=== PATIENT | male | born 1985 | race Caucasian/White ===

== ENCOUNTER 2018-02-25 07:53 | Day surgery (SDC) | payer OTHER ==
[~2018-02-25] VITALS: Ht 177.8 cm; Wt 140.6 kg
--- NOTE | ~2018-02-25 | OP ---
PATIENT NAME: JENARO RICO MEDICAL RECORD: [id number] LOCATION:D.OPS ADMISSION DATE: SURGEON: TREVOR NASH MD DATE OF OPERATION: 02/25/2018 PREOPERATIVE DIAGNOSES: 1. Gallstones. 2. Umbilical hernia. 3. Hypertension. 4. Gout. 5. Morbid obesity with a BMI of 44.5. POSTOPERATIVE DIAGNOSES: 1. Gallstones. 2. Umbilical hernia. 3. Hypertension. 4. Gout. 5. Morbid obesity with a BMI of 44.5. PROCEDURE: 1. Laparoscopic cholecystectomy. 2. Umbilical hernia repair without mesh. SURGEON: Trevor Nash MD SHED BOSS: Cony Reece APRN REPORT OF PROCEDURE: The patient's abdomen was prepped and draped in sterile fashion. A semicircular incision was made on the inferior aspect of the umbilicus. Electrocautery was used to dissect through the subcutaneous tissues and the tissue underneath the umbilical stalk. This incorporated the hernia sac. The hernia defect was a little over a centimeter in greatest diameter. We cleared up the fascial edges and placed 0 Vicryls on the fascia bilaterally. I bluntly entered the peritoneal cavity and placed a 12-mm Keily port. Under direct visualization, a 5-mm trocar was placed in the epigastrium and 2 more 5-mm trocars were placed in the right subcostal region. The gallbladder was elevated and there was noted to be some inflammatory adhesions present. These were teased down carefully with blunt dissection. The cystic artery and cystic duct were dissected free and these were clipped proximally and distally and ligated in standard fashion. The gallbladder was then taken off the liver bed using electrocautery and placed into an Endo Catch bag. The right upper quadrant was irrigated out and care was taken to assure there was no sign of any bleeding or bile leakage. Any bleeding from the liver bed was treated with electrocautery. At this point, the ports and insufflation were then removed and the gallbladder was taken out through the umbilicus. The umbilical fascia had to be opened up superiorly in order to facilitate removal of the gallbladder due to the size of the stone. The fascia was then closed in the midline using multiple interrupted 0 Prolenes. The wound was then irrigated out with normal saline. The umbilicus was tacked down to the fascia with a single interrupted 3-0 Vicryl. The subcutaneous tissues were then reapproximated with interrupted 3-0 Vicryl. A total of 10 mL of 0.25% Marcaine with epinephrine were infused into the surrounding tissues and the skin incisions were closed with subcutaneous 5-0 Monocryl. The wounds were then dressed appropriately. COMPLICATIONS: None. OPERATIVE REPORT [id number] JENARO RICO CONDITION: Stable. ANESTHESIA: General endotracheal and local. BLOOD LOSS: Minimal. TRANSINT:[id number] Voice Confirmation ID: [id number] DOCUMENT ID: [id number] TREVOR NASH MD at 1219 CC: [id number] DICTATION DATE: 02/25/18 1133 LLAMA FARMER: 02/25/18 1152 [facility] [address] [place] [address]
[2018-02-25 08:18] LABS: BASOPHILS 0.4 % (0-2); EOSINOPHILS 2.1 % (0-7); HEMATOCRIT 42.9 % (42.0-54.0); HEMOGLOBIN 15.2 g/dL (13.5-17.5); IMMATURE GRANULOCYTES 0.4 % (0-5); LYMPHOCYTES 28.4 % (15-50); MCH 29.8 pg (26.0-34.0); MCHC 35.4 g/dL (31.0-37.0); MCV 84.1 fL (80.0-100.0); MEAN PLATELET VOLUME 10.1 fL (7.4-10.4); MONOCYTES 9.9 % (2-11); NEUTROPHILS 58.8 % (40-80); PLATELET COUNT 275 10x3/uL (130-400); WBC 6.7 10x3/uL (4.8-10.8)
[2018-02-25 08:30] LABS: CALC OSMOLALITY 280 mosm/kg (275-300); CALCIUM 9.2 mg/dL (8.5-10.1); CARBON DIOXIDE 28.3 mmol/L (21.0-32.0); CHLORIDE - SERUM 103 mmol/L (98-107); CREATININE - SERUM 1.1 mg/dL (0.6-1.3); GLUCOSE 108 mg/dL (74-106); POTASSIUM - SERUM 3.8 mmol/L (3.5-5.1); SODIUM 140 mmol/L (136-145); UREA NITROGEN 15 mg/dL (7-18); eGFR NON AFRICAN AMERICAN 82 mL/min (90-120)
[2018-02-25] MEDS ORDERED: OMEPRAZOLE40 MG PO (09:03)
[2018-02-25] MEDS ORDERED: METOPROLOL TART25 MG PO (09:04)
[2018-02-25] MEDS ORDERED: LISINOPRIL5 MG PO (09:04)
[2018-02-25 09:12] VITALS: BP 119/78; Ht 177.8 cm; Wt 140.6 kg
[2018-02-25] MEDS ORDERED: NORCO 10-325 TA1 TAB PO (11:28)
== END 2018-02-25 15:20 | disposition home or self-care (01) ==
LOC: D.OPS 07:53
PROVIDERS: Anesthesiology
DX: K80.10 Calculus of gallbladder with chronic cholecystitis without obstruction (principal); K81.1 Chronic cholecystitis; K42.9 Umbilical hernia without obstruction or gangrene; I10 Essential (primary) hypertension; M10.9 Gout, unspecified; E66.01 Morbid (severe) obesity due to excess calories; Z68.41 Body mass index [BMI] 40.0-44.9, adult

== ENCOUNTER → 2018-11-12 12:49 | Outpatient (CLI) | payer OTHER ==
[2018-02-25 09:12] VITALS: BMI 45.2
[~2018-11-12 12:49] MED LIST: LISINOPRIL5 MG PO; METOPROLOL TART25 MG PO; NORCO 10-325 TA1 TAB PO; OMEPRAZOLE40 MG PO
== END | disposition home or self-care (01) ==
LOC: D.RAD 12:49
PROVIDERS: ATTEND Orthopaedic Surgery
DX: S43.432A Superior glenoid labrum lesion of left shoulder, initial encounter (principal)